=== PATIENT | female | born 2000 | race Hispanic/Latino ===

== ENCOUNTER 2024-02-03 18:00 | Inpatient (IN) | payer OTHER ==
[2024-02-03] MEDS ORDERED: Diphenoxylate HCl/Atropine Tablet PO PRN (21:04)
[2024-02-03] MEDS ORDERED: Methylergonovine 0.2 MG/ML VIAL IM PRN (21:04)
[2024-02-03] MEDS ORDERED: Lidocaine 1% (PF) 30 ML VIAL SC PRN (21:04)
[2024-02-03] MEDS ORDERED: Ondansetron PF 4 MG/2 ML Vial IVP PRN (21:04)
[2024-02-03] MEDS ORDERED: Carboprost 250 MCG/ML AMP IM PRN (21:04)
[2024-02-03] MEDS ORDERED: Promethazine HCl 25 MG/ML VIAL IM PRN (21:04)
[2024-02-03] MEDS ORDERED: Docusate 100 MG CAP PO PRN (21:04)
[2024-02-03] MEDS ORDERED: Ibuprofen 800 MG TAB PO PRN (21:04)
[2024-02-03] MEDS ORDERED: Misoprostol 200 MCG TAB PR PRN (21:04)
[2024-02-03] MEDS ORDERED: hydrALAZINE 20 MG/ML VIAL SLOW IVP PRN (21:04)
[2024-02-03 21:12] VITALS: BMI 24.7
[2024-02-03] MEDS ORDERED: Oxytocin 30 units/NS 500 ML 500 ML IV SCH (21:15)
[2024-02-03 22:01] LABS: Hematocrit 37.5 % (34.9-44.5); Hemoglobin 13.2 g/dL (12.0-15.5); Mean Corpuscular HGB CONC 35.2 g/dL (32.0-36.0); Mean Corpuscular Volume 90.8 fL (81.6-98.3); Mean Platelet Volume 10.4 fL (7.4-10.4); Platelet Count 189 10x3/uL (150-450); RBC Distribution Width 13.3 % (11.5-14.5); Red Blood Cell (RBC) Count 4.13 10x6/uL (3.90-5.03); White Blood Cell (WBC) Count 8.2 10x3/uL (3.5-10.5)
[2024-02-03] MEDS: Misoprostol 100 MCG TAB VAG SCH (22:24)
[2024-02-03 22:30] LABS: Syphilis Antibody Nonreactive (Nonreactive); Syphilis Antibody Index 0.99 S/CO (<1.00 Non-Reactive)
[2024-02-03 22:33] LABS: HBsAg Index 0.21 S/CO (0-0.99); Hep B Surf Ag - L&D Non-Reactive S/CO (NonReactive)
[2024-02-04] MEDS: Lactated Ringer's 1,000 ML IV SCH (10:32)
[2024-02-04] MEDS: fentaNYL 50 mcg/mL 1 mL Vial SLOW IVP PRN (10:33)
[2024-02-04] MEDS ORDERED: Moisturizing Cream (Eucerin) 113 GM JAR TOP PRN (12:59)
[2024-02-04] MEDS ORDERED: Promethazine HCl 25 MG/ML VIAL IM PRN (12:59)
[2024-02-04] MEDS ORDERED: ePHEDrine Sulfate 50 MG/10 ML VIAL SLOW IVP PRN (12:59)
[2024-02-04] MEDS ORDERED: Naloxone HCl 0.4 mg/ml Vial IVP PRN ×2 (12:59)
[2024-02-04] MEDS ORDERED: Lactated Ringer's 500 ML IV PRN (12:59)
[2024-02-04] MEDS ORDERED: diphenhydrAMINE 50 MG/ML VIAL IVP PRN (12:59)
[2024-02-04] MEDS ORDERED: Ondansetron PF 4 MG/2 ML Vial IVP PRN (12:59)
[2024-02-04] MEDS ORDERED: Communication Order-Pharmacy FS SCH (13:00)
[2024-02-04] MEDS ORDERED: fentaNYL 2 mcg/Ropivacaine 0.2% Epidural 100 ML CADD EPIDURAL SCH (13:00)
[2024-02-04] MEDS: fentaNYL/Ropivacaine Epidural 100 ML ONE (13:26)
[2024-02-04] MEDS: Oxytocin 30 units/NS 500 ML 500 ML IV SCH (21:02)
[2024-02-04] MEDS ORDERED: Misoprostol 200 MCG TAB VAG PRN (22:52)
[2024-02-04] MEDS ORDERED: Oxytocin 30 units/NS 500 ML 500 ML IV SCH (22:52)
[2024-02-04] MEDS ORDERED: Bisacodyl 10 MG SUPP PR PRN (22:52)
[2024-02-04] MEDS ORDERED: hydrALAZINE 20 MG/ML VIAL SLOW IVP PRN (22:52)
[2024-02-04] MEDS ORDERED: Methylergonovine 0.2 MG/ML VIAL IM PRN (22:52)
[2024-02-04] MEDS ORDERED: Milk Of Magnesia 30 ML UDCUP PO PRN (22:52)
[2024-02-05] MEDS: Acetaminophen 325 MG TAB PO PRN (01:11)
[2024-02-05] MEDS: Benzocaine-Menthol 82.5 ML CAN TOP PRN (01:11)
[2024-02-05] MEDS: Docusate 100 MG CAP PO SCH ×2 (03:03→09:09)
[2024-02-05] MEDS: Ibuprofen 800 MG TAB PO SCH ×2 (03:48→12:40)
[2024-02-05] MEDS: Boostrix 0.5 ML (Tdap) VIAL (>/=7 yrs of age) IM ONE (07:17)
[2024-02-05] MEDS: Ferrous Sulfate 325 MG TAB PO SCH (07:20)
[2024-02-06 08:02] VITALS: BP 98/54; TEMP 98.2
== END 2024-02-06 16:00 | disposition home or self-care (01) | DRG 807 ==
LOC: CSHLD 20:41 → CSHPP 02-04 22:15
PROVIDERS: ADMIT Family Medicine; ATTEND Family Medicine
PROC: 10E0XZZ Delivery of Products of Conception, External Approach (ICD-10-PCS; principal; 2024-02-04)
PROC: 0KQM0ZZ Repair Perineum Muscle, Open Approach (ICD-10-PCS; 2024-02-04)
PROC: 0UQMXZZ Repair Vulva, External Approach (ICD-10-PCS; 2024-02-04)
DX: O48.0 Post-term pregnancy (principal); Z37.0 Single live birth; Z3A.40 40 weeks gestation of pregnancy; O71.82 Other specified trauma to perineum and vulva; O70.1 Second degree perineal laceration during delivery
CPT/HCPCS: 36415; 51702; 85027; 86780; 86850; 86900; 86901; 87340; J2590; J3010; J7120